=== PATIENT | female | born 1970 | race Caucasian/White ===

== ENCOUNTER 2016-11-19 10:29 | Day surgery (SDC) | payer OTHER ==
[2016-11-19 11:12] VITALS: BMI 25.0
[2016-11-19 12:41] VITALS: TEMP 97.8
[2016-11-19 13:07] VITALS: BP 98/60; PULSE 54
--- NOTE | 2016-11-20 16:10 | PATH ---
Surgical Pathology Report Patient Name: CHRISSIE ALBERTO [facility]. Rec. #: [id number] /Age/Gender: 1970 (Age: 46) / F Account: [id number] Location: [facility] Taken: 11/19/2016 Received: 11/19/2016 Reported: 11/20/2016 Physicians: Mark Sierra M.D. Specimen(s) Received A: BX DUODENUM B: BX BODY OF STOMACH C: BX POLYP OF BODY OF STOMACH D: BX EROSION GE JUNCTION Clinical History Epigastric pain, nausea Erosion GE junction, gastric polyp Final Diagnosis A. DUODENUM, BIOPSY: DUODENAL MUCOSA WITH MILD CHRONIC INFLAMMATION. NO HISTOLOGIC EVIDENCE OF GLUTEN SENSITIVE ENTEROPATHY (CELIAC DISEASE). B. STOMACH, BODY, BIOPSY: GASTRIC OXYNTIC MUCOSA WITH MODERATE CHRONIC GASTRITIS. IMMUNOSTAIN FOR H. PYLORI IS NEGATIVE FOR ORGANISMS. C. STOMACH, BODY, POLYP, BIOPSY: GASTRIC OXYNTIC MUCOSA WITH HYPERPLASTIC FUNDIC GLAND POLYP AND MODERATE CHRONIC GASTRITIS. IMMUNOSTAIN FOR H. PYLORI IS NEGATIVE FOR ORGANISMS. D. GE JUNCTION, EROSION, BIOPSY: SQUAMOCOLUMNAR JUNCTIONAL MUCOSA WITH ACTIVE AND CHRONIC INFLAMMATION WITH SURFACE EROSION. NO INTESTINAL METAPLASIA (WILKINS'S ESOPHAGUS) IDENTIFIED. Electronically Signed Humberto Oconnor M.D. Gross Description A. Received in formalin, labeled "biopsy duodenum" are 2 zurita, irregular portions of soft tissue measuring 0.3 and 0.7 cm in greatest dimension. The specimens are submitted in toto in one cassette. B. Received in formalin, labeled "biopsy body of stomach" is a zurita, irregular portion of soft tissue measuring 0.5 cm in greatest dimension. The specimen is submitted in toto in one cassette. C. Received in formalin, labeled "biopsy polyp of body of stomach" is a zurita, irregular portion of soft tissue measuring 0.3 cm in greatest dimension. The specimen is submitted in toto in one cassette. D. Received in formalin, labeled "biopsy erosion GE junction" is a zurita, irregular portion of soft tissue measuring 0.3 cm in greatest dimension. The specimen is submitted in toto in one cassette. DL/11/19/2016 saudi11/19/2016
== END 2016-11-19 13:10 | disposition home or self-care (01) ==
LOC: JASU-ENDO 10:29
PROVIDERS: ATTEND Internal Medicine Gastroenterology
PROC: 0DB68ZX Excision of Stomach, Via Natural or Artificial Opening Endoscopic, Diagnostic (ICD-10-PCS; 2016-11-19)
PROC: 0DB98ZX Excision of Duodenum, Via Natural or Artificial Opening Endoscopic, Diagnostic (ICD-10-PCS; 2016-11-19)
PROC: 0DB48ZX Excision of Esophagogastric Junction, Via Natural or Artificial Opening Endoscopic, Diagnostic (ICD-10-PCS; principal; 2016-11-19 11:00)
DX: K22.10 Ulcer of esophagus without bleeding (principal); K31.7 Polyp of stomach and duodenum
CPT/HCPCS: 84703; 88305-TC; 88342-TC

== ENCOUNTER 2024-05-13 09:53 | Emergency (ER) | payer OTHER ==
[2024-05-13 10:19] VITALS: BMI 27.6
[2024-05-13] MEDS ORDERED: ACETAMINOPHEN INJECTION 100 ML ONE (10:22)
[2024-05-13] MEDS ORDERED: ONDANSETRON 4 MG/2 ML VIAL ONE (10:22)
[2024-05-13] MEDS: SODIUM CHLORIDE 0.9% 500 ML INFUS.BAG IV ONE (10:33)
[2024-05-13] MEDS: ACETAMINOPHEN 1000 MG/100 ML BAG IVPB ONE (10:33)
[2024-05-13] MEDS: ONDANSETRON 4 MG/2 ML VIAL IVPUSH ONE (10:34)
[2024-05-13 10:38] LABS: HEMATOCRIT 38.4 % (32.4-45.2); HEMOGLOBIN 12.9 G/dL (10.7-15.3); MCH 30.7 pg (25.7-33.7); MCHC 33.5 g/dl (32.0-36.0); MEAN CELL VOLUME 91.6 fl (80-96); MEAN PLT VOLUME 7.8 fl (7.5-11.1); PLATELET COUNT 228.2 10^3/uL (134-434); RBC 4.19 10^6/uL (3.60-5.2); RDW 13.5 % (11.6-15.6); WHITE BLOOD COUNT 6.8 10^3/uL (4.0-10.8)
[2024-05-13 11:04] LABS: ALBUMIN 4.8 g/dl (3.4-5.0); ALK PHOS 78 U/L (45-117); ANION GAP 8 mmol/L (4-13); BILIRUBIN,TOTAL 0.4 mg/dl (0.2-1); CALCIUM 9.4 mg/dl (8.5-10.1); CHLORIDE 97 mmol/L (98-107); CO2 30 mmol/L (21-32); CREATININE 0.8 mg/dl (0.6-1.3); GLUCOSE,RANDOM 121 mg/dl (74-106); POTASSIUM 3.9 mmol/L (3.5-5.1); SGOT/AST 27 U/L (15-37); SGPT/ALT 24 U/L (7-52); SODIUM 135 mmol/L (136-145); TOT PROT 7.7 g/dl (6.4-8.2)
[2024-05-13 12:05] LABS: EPITHELIAL CELLS 0-5 /hpf
[2024-05-13 12:06] LABS: PLATELET ESTIMATE ADEQUATE; TARGET CELLS 1+
[2024-05-13 12:18] VITALS: BP 97/65; PULSE 108; RESP 17; TEMP 99.9
[2024-05-13 13:00] LABS: HIV INTERPRETATION NEGATIVE (NEGATIVE)
== END 2024-05-13 13:21 | disposition home or self-care (01) ==
LOC: FER 09:53
PROC: 3E033NZ Introduction of Analgesics, Hypnotics, Sedatives into Peripheral Vein, Percutaneous Approach (ICD-10-PCS; principal; 2024-05-13)
PROC: 3E033GC Introduction of Other Therapeutic Substance into Peripheral Vein, Percutaneous Approach (ICD-10-PCS; 2024-05-13)
DX: J10.1 Influenza due to other identified influenza virus with other respiratory manifestations (principal); R30.0 Dysuria; R50.9 Fever, unspecified; R05.9 Cough, unspecified; R11.0 Nausea; R53.81 Other malaise; R42 Dizziness and giddiness; M79.10 Myalgia, unspecified site; Z20.822 Contact with and (suspected) exposure to COVID-19
CPT/HCPCS: 0241U-QW; 36415; 80053; 81003; 81015; 85027; 86803; 87086; 87186; 87389; 99284-25; J0131